=== PATIENT | female | born 1980 | race African-American/Black ===

== ENCOUNTER 2017-06-08 10:30 | Emergency (ER) | payer MEDICAID, OTHER ==
[~2017-06-08] VITALS: Ht 152.4 cm; Wt 165.0 kg
[~2017-06-08 10:30] MED LIST: ALBU2.5V13 NEB
[2017-06-08 10:50] VITALS: BP 168/82
== END 2017-06-08 14:38 | disposition left against medical advice (07) ==
LOC: ER 12:31
DX: Z53.21 Procedure and treatment not carried out due to patient leaving prior to being seen by health care provider (principal); J45.909 Unspecified asthma, uncomplicated

== ENCOUNTER 2020-01-07 18:16 | Inpatient (IN) | payer MEDICAID, OTHER ==
[~2020-01-07] VITALS: Ht 152.4 cm; Wt 210.0 kg
[2020-01-07] MEDS ORDERED: FAMOTIDINE 20MG/2ML VIAL IV STA (18:48)
[2020-01-07] MEDS ORDERED: ONDANSETRON HCL 4MG/2ML INJ IV STA (18:48)
[2020-01-07] MEDS ORDERED: SODIUM CHLORIDE 0.9% 1,000 ML IV ONE (19:00)
[2020-01-07] MEDS ORDERED: MORPHINE SULFATE 10 MG/ML CPJ IV ONE ×2 (19:45→21:00)
[2020-01-07 20:47] LABS: HCG SCREEN NEGATIVE
[2020-01-07] MEDS ORDERED: ONDANSETRON HCL 4MG/2ML INJ IV ONE (21:00)
[2020-01-07 22:41] LABS: BASOPHILS % 0.3 % (0.0-2.0); EOSINOPHILS % 0.2 % (0.0-5.0); HEMATOCRIT. 36.8 % (36.0-48.0); HEMOGLOBIN. 10.9 g/dL (12.0-16.0); LYMPHOCYTES % 8.1 % (20.0-50.0); MEAN CORPUSCULAR VOLUME 70.9 fL (81.0-99.0); MEAN PLATELET VOLUME 8.4 fl (7.4-10.4); MONOCYTES % 3.3 % (2.0-8.0); NEUTROPHILS % 88.1 % (40.0-76.0); PLATELET 165 x1000/uL (130-400)
[2020-01-07 22:49] LABS: CHLORIDE 104 mEq/L (98-107)
[2020-01-07 22:56] LABS: ETHANOL BLOOD < 10 mg/dL
[2020-01-08 00:09] LABS: CLARITY URINE CLOUDY (CLEAR); COLOR URINE YELLOW (YELLOW); KETONES URINE NEGATIVE (NEGATIVE); LEUKOCYTE ESTERASE URINE TRACE (NEGATIVE); NITRITE URINE NEGATIVE (NEGATIVE); OCCULT BLOOD URINE NEGATIVE (NEGATIVE); PROTEIN URINE NEGATIVE (NEGATIVE)
[2020-01-08 00:26] LABS: *AMPHETAMINES SCREEN URINE NEGATIVE (NEGATIVE); *BARBITURATES SCREEN URINE NEGATIVE (NEGATIVE); *COCAINE SCREEN URINE NEGATIVE (NEGATIVE); CANNABINOID URINE SCREEN NEGATIVE (NEGATIVE); METHADONE URINE SCREEN NEGATIVE (NEGATIVE); PHENCYCLIDINE URINE SCREEN NEGATIVE (NEGATIVE)
[2020-01-08 00:27] LABS: *BENZODIAZEPINES SCREEN URINE NEGATIVE (NEGATIVE)
[2020-01-08 00:31] LABS: OPIATES URINE SCREEN PRESUMTIVE POSITIVE (NEGATIVE)
[2020-01-08 02:19] VITALS: BP 143/66
[2020-01-08] MEDS ORDERED: AMLO10TA80 MT (03:37)
[2020-01-08] MEDS ORDERED: ALBU2.5V13 NEB (03:37)
[2020-01-08] MEDS ORDERED: LEVE10006 MT (03:37)
[2020-01-08] MEDS ORDERED: GABA-290 MT (03:37)
[2020-01-08] MEDS ORDERED: BECL10.6 INH (03:37)
[2020-01-08 04:00] VITALS: BP 132/64
[2020-01-08] MEDS ORDERED: ONDANSETRON HCL 4MG/2ML INJ IV PRN (05:15)
[2020-01-08] MEDS: SODIUM CHLORIDE 0.9% 1,000 ML IV SCH ×2 (06:14→22:11)
[2020-01-08] MEDS: MORPHINE SULFATE 2 MG/ML CPJ (NOT FOR IM USE) IV PRN ×3 (06:18→22:50)
[2020-01-08] MEDS: GABAPENTIN 300MG CAPSULE PO SCH ×3 (06:32→21:23)
[2020-01-08] MEDS: LEVETIRACETAM 500MG TABLET PO SCH ×2 (09:23→21:23)
[2020-01-08] MEDS: AMLODIPINE 10MG TABLET PO SCH (09:23)
[2020-01-08] MEDS: ENOXAPARIN 40MG/0.4ML SYR SUBCUT SCH ×2 (09:23→21:24)
[2020-01-08 09:45] LABS: CHLORIDE 105 mEq/L (98-107)
[2020-01-08 09:47] LABS: BASOPHILS % 0.3 % (0.0-2.0); EOSINOPHILS % 1.5 % (0.0-5.0); HEMATOCRIT. 26.9 % (36.0-48.0); HEMOGLOBIN. 8.2 g/dL (12.0-16.0); LYMPHOCYTES % 21.6 % (20.0-50.0); MEAN CORPUSCULAR VOLUME 68.5 fL (81.0-99.0); MEAN PLATELET VOLUME 8.6 fl (7.4-10.4); MONOCYTES % 9.7 % (2.0-8.0); NEUTROPHILS % 66.9 % (40.0-76.0); PLATELET 211 x1000/uL (130-400); RED BLOOD CELL COUNT 3.93 mill/uL (4.2-5.4); RED CELL DISTRIBUTION WIDTH 17.5 % (11.6-14.6)
[2020-01-08 12:55] VITALS: BP 139/70
[2020-01-08] MEDS: ALBUTEROL (0.083%) 2.5MG/3ML NEB HHN SCH ×3 (13:30→21:57)
[2020-01-08] MEDS ORDERED: AMLODIPINE 10MG TABLET PO SCH (13:45)
[2020-01-08] MEDS ORDERED: GABAPENTIN 300MG CAPSULE PO SCH (14:00)
[2020-01-08 14:52] LABS: AMYLASE 563 IU/L (25-115)
[2020-01-08 14:54] LABS: TOTAL IRON BINDING CAPACITY 361 ug/dL (250-450)
[2020-01-08 18:11] VITALS: BP 135/70
[2020-01-08 20:00] VITALS: BP 144/53
[2020-01-08] MEDS ORDERED: LEVETIRACETAM 500MG/5ML CUP PO SCH (21:00)
[2020-01-09 00:22] VITALS: BP 117/72
[2020-01-09] MEDS: ALBUTEROL (0.083%) 2.5MG/3ML NEB HHN SCH ×5 (01:19→21:29)
[2020-01-09] MEDS: MORPHINE SULFATE 2 MG/ML CPJ (NOT FOR IM USE) IV PRN ×2 (01:37→08:31)
[2020-01-09 04:00] VITALS: BP 125/53
[2020-01-09] MEDS: GABAPENTIN 300MG CAPSULE PO SCH ×3 (06:36→21:15)
[2020-01-09] MEDS: SODIUM CHLORIDE 0.9% 1,000 ML IV SCH ×2 (07:00→15:27)
[2020-01-09 08:00] VITALS: BP 124/88
[2020-01-09] MEDS: ENOXAPARIN 40MG/0.4ML SYR SUBCUT SCH ×2 (08:29→21:15)
[2020-01-09] MEDS: LEVETIRACETAM 500MG TABLET PO SCH ×2 (08:29→21:15)
[2020-01-09] MEDS: AMLODIPINE 10MG TABLET PO SCH (08:30)
[2020-01-09 09:21] LABS: BASOPHILS % 0.4 % (0.0-2.0); EOSINOPHILS % 2.2 % (0.0-5.0); HEMATOCRIT. 27.9 % (36.0-48.0); HEMOGLOBIN. 8.5 g/dL (12.0-16.0); LYMPHOCYTES % 18.1 % (20.0-50.0); MEAN CORPUSCULAR HEMOGLOBIN 20.9 pg (28.0-32.0); MEAN CORPUSCULAR VOLUME 68.4 fL (81.0-99.0); MEAN PLATELET VOLUME 8.4 fl (7.4-10.4); MONOCYTES % 9.3 % (2.0-8.0); PLATELET 192 x1000/uL (130-400); RED BLOOD CELL COUNT 4.08 mill/uL (4.2-5.4); RED CELL DISTRIBUTION WIDTH 18.1 % (11.6-14.6)
[2020-01-09 09:26] LABS: CHLORIDE 105 mEq/L (98-107)
[2020-01-09 09:30] LABS: AMYLASE 123 IU/L (25-115)
[2020-01-09 09:36] LABS: LDL CHOLESTEROL 87 mg/dL (5-100)
[2020-01-09 09:37] LABS: HDL CHOLESTEROL 63 mg/dL (40-59)
[2020-01-09] MEDS: HYDROMORPHONE HCL/PF 2MG/ML CPJ IV PRN ×2 (09:40→14:18)
[2020-01-09 11:20] LABS: HEPATITIS B SURFACE ANTIGEN NEGATIVE
[2020-01-09 11:49] LABS: HEPATITIS A AB IGM NEGATIVE (NEGATIVE)
[2020-01-09 12:00] VITALS: BP_SYST 113; BP_SYST 120; BP_DIAS 51; BP_DIAS 85
[2020-01-09] MEDS ORDERED: IRON SUCROSE COMPLEX 100 MG/5 ML ML IV SCH (15:00)
[2020-01-09 16:00] VITALS: BP_SYST 111; BP_SYST 113; BP_DIAS 50; BP_DIAS 55
[2020-01-09 20:33] VITALS: BP 118/52
[2020-01-10 00:42] VITALS: BP 108/60
[2020-01-10] MEDS: ALBUTEROL (0.083%) 2.5MG/3ML NEB HHN SCH ×4 (00:48→12:00)
[2020-01-10] MEDS: HYDROMORPHONE HCL/PF 2MG/ML CPJ IV PRN ×2 (00:55→08:56)
[2020-01-10 04:00] VITALS: BP_SYST 130; BP_SYST 160; BP_DIAS 56
[2020-01-10] MEDS: GABAPENTIN 300MG CAPSULE PO SCH ×2 (06:53→14:00)
[2020-01-10] MEDS: SODIUM CHLORIDE 0.9% 1,000 ML IV SCH (06:54)
[2020-01-10 07:52] VITALS: BP 130/67
[2020-01-10 08:52] LABS: BASOPHILS % 0.4 % (0.0-2.0); EOSINOPHILS % 4.1 % (0.0-5.0); HEMATOCRIT. 26.4 % (36.0-48.0); MEAN CORPUSCULAR HEMOGLOBIN 20.8 pg (28.0-32.0); MEAN PLATELET VOLUME 8.4 fl (7.4-10.4); MONOCYTES % 10.8 % (2.0-8.0); NEUTROPHILS % 63.7 % (40.0-76.0); PLATELET 202 x1000/uL (130-400); RED BLOOD CELL COUNT 3.83 mill/uL (4.2-5.4); RED CELL DISTRIBUTION WIDTH 17.7 % (11.6-14.6)
[2020-01-10] MEDS: LEVETIRACETAM 500MG TABLET PO SCH (08:55)
[2020-01-10] MEDS: AMLODIPINE 10MG TABLET PO SCH (08:55)
[2020-01-10 09:02] LABS: CHLORIDE 105 mEq/L (98-107)
[2020-01-10 09:05] LABS: AMYLASE 73 IU/L (25-115)
[2020-01-10 09:07] LABS: PHOSPHORUS 2.7 mg/dL (2.5-4.9)
[2020-01-10] MEDS: ENOXAPARIN 40MG/0.4ML SYR SUBCUT SCH (09:11)
[2020-01-10 11:18] VITALS: BP 138/57
[2020-01-10 12:06] VITALS: BP 138/57
[2020-01-10] MEDS ORDERED: HYDR-4001 MT (14:32)
== END 2020-01-10 15:28 | disposition home or self-care (01) | DRG 282 ==
LOC: ER 18:16 → 6WST 01-08 00:10 → EDBEDREQSVC 01-08 00:14 → EDBEDREQTM 01-08 00:14 → EDBEDREQDT 01-08 00:14 → EDBEDREQ 01-08 00:14 → ENRESERV 01-08 00:45
PROVIDERS: ADMIT Internal Medicine; ATTEND Internal Medicine
DX: K85.90 Acute pancreatitis without necrosis or infection, unspecified (principal); E88.09 Other disorders of plasma-protein metabolism, not elsewhere classified; K42.9 Umbilical hernia without obstruction or gangrene; I11.0 Hypertensive heart disease with heart failure; I50.9 Heart failure, unspecified; J45.909 Unspecified asthma, uncomplicated; J84.9 Interstitial pulmonary disease, unspecified; E66.9 Obesity, unspecified; D50.9 Iron deficiency anemia, unspecified; K76.9 Liver disease, unspecified; R16.2 Hepatomegaly with splenomegaly, not elsewhere classified; Z68.45 Body mass index [BMI] 70 or greater, adult; Z88.8 Allergy status to other drugs, medicaments and biological substances; Z79.899 Other long term (current) drug therapy; Z79.51 Long term (current) use of inhaled steroids; Z82.49 Family history of ischemic heart disease and other diseases of the circulatory system; Z98.891 History of uterine scar from previous surgery
CPT/HCPCS: 36415; 71045; 74176; 76705; 80048; 80053; 80061; 80076; 80305; 80320; 81003; 82150; 82728; 83540; 83550; 83735; 83880; 84100; 84484; 84703; 85025; 86705; 86709; 86803; 87340; 93005; 93306; 96374; 99285; J1170; J1650; J2270; J2405; J3490; J7030; G0480